=== PATIENT | female | born 2000 | race Caucasian/White ===

== ENCOUNTER 2019-12-06 22:20 | Emergency (ER) | payer OTHER ==
[~2019-12-06] VITALS: Ht 154.9 cm; Wt 47.6 kg
[2019-12-07] MEDS ORDERED: KEFLEX500 MG PO (07:27)
[2019-12-07] MEDS ORDERED: KETO10TA2 PO (07:27)
== END 2019-12-07 07:52 | disposition home or self-care (01) ==
LOC: ER 22:20
DX: N39.0 Urinary tract infection, site not specified (principal)

== ENCOUNTER 2019-12-08 10:40 | Outpatient (CLI) | payer OTHER ==
[~2019-12-08 10:40] MED LIST: KEFLEX500 MG PO; KETO10TA2 PO
== END 2019-12-08 14:11 | disposition home or self-care (01) ==
LOC: SONOGRAMA 10:40
DX: N88.8 Other specified noninflammatory disorders of cervix uteri (principal); R10.31 Right lower quadrant pain